=== PATIENT | male | born 1990 | race Caucasian/White ===

== ENCOUNTER 2018-04-26 21:20 | Outpatient (REF) | payer MEDICAID, SELFPAY ==
[2018-04-26 22:44] LABS: TSH (W/Ref FT4) 1.46 uIU/mL (0.358-3.74)
[2018-04-26 23:56] LABS: Anion Gap 10.2 mmol/L (3-11); BUN 11 mg/dL (7-18); CO2 25.8 mmol/L (21.0-32.0); Chloride 107 mmol/L (98-107); Glucose 68 mg/dL (70-100); Potassium 4.3 mmol/L (3.5-5.1); Sodium 143 mmol/L (136-145)
== END 2018-04-26 21:40 ==
LOC: NCHCN 21:20
PROVIDERS: PCP Specialist/Technologist Athletic Trainer; Visit Provider Specialist/Technologist Athletic Trainer
DX: F32.9 Major depressive disorder, single episode, unspecified (principal); Z00.00 Encounter for general adult medical examination without abnormal findings
CPT/HCPCS: 80048; 84443

== ENCOUNTER 2018-06-04 11:26 | Emergency (ER) | payer MEDICAID, SELFPAY ==
[2018-06-04 11:33] VITALS: BP 125/69; PULSE 55; RESP 18; TEMP 36.8; O2SAT 99
--- NOTE | 2018-06-04 11:45 | DI.CT_ITS ---
SYMPTOMS/DIAGNOSIS: LEFT LOWER QUADRANT ABDOMINAL PAIN, NAUSEA ABDOMINAL AND PELVIC CT: A CT examination of the abdomen and pelvis was performed following the intravenous infusion of Omnipaque 350. The liver and spleen are normal in size and shape with no evidence of any focal defects. There is no evidence of biliary dilatation. The gallbladder has a normal CT appearance. The pancreas appears intact and is not enlarged. There is no evidence of retroperitoneal lymphadenopathy. The bladder appears intact. The kidneys show bilateral function and there is no evidence of a renal mass. The vascular structures appear intact. There is no evidence of a mass in the pelvis. There is no evidence of a fluid collection or adenopathy. CONCLUSION: Normal abdominal and pelvic CT.
--- NOTE | 2018-06-04 11:46 | W.ED.GENAD ---
Discharge Plan Disposition Patient Disposition: HOME Condition: Improving Discharge Details Chief Complaint: Abd Prob Clinical Impression: Abdominal wall strain Primary Care Provider: Cedrick Barfield ED Provider: Justin Dias Home Meds and New Rx's Prescriptions: No Action No Known Home Meds RF: 0 Discharge Instructions Instructions: Muscle Strain (ED) Additional Instructions: Home to rest today. Small, frequent sips of fluids to maintain hydration. May use Tylenol and/or ibuprofen as needed for pain. Your CAT scan and blood work today was reassuring. Return if you develop a fever, worsening discomfort, or any other acute concerns. May return to activity gradually, as tolerated Discharge Data Discharge Date/Time-TO BE ENTERED AT DEPARTURE: 06/04/18 12:50 Medical Decision Making Healthy 27-year-old male presents with 3 days of aching left lower quadrant abdominal pain is worse with movement. He is afebrile and well-appearing he is tender in the lower abdomen. Differential diagnosis includes muscular strain, occult colitis or diverticulitis. Patient IV access established, screening labs obtained, referred for imaging studies. Diagnostics reveal normal CBC and chemistries, UA notable for SG 1.030 Imaging: No acute findings per Dr. Chavarria. Therefore, consistent with left lateral muscular abdominal wall strain. Discussed the patient's findings with him, as well as home management and return precautions to the emergency department. He is stable for discharge at this time. Lab Data Lab results reviewed: Yes I reviewed the patient's lab results. Laboratory Tests Range/Units 06/04/18 06/04/18 06/04/18 11:50 12:00 12:00 WBC (4.4-10.8) k/cumm 6.80 RBC (4.50-6.00) m/cumm 5.62 Hgb (13.5-17.5) g/dL 17.0 Hct (40.0-50.0) % 50.5 H MCV (80-95) fL 89.9 MCH (27.0-33.0) pg 30.2 MCHC (32.0-36.0) g/dL 33.7 RDW (11.8-14.1) % 12.7 Plt Count (130-400) x1000/uL 228 MPV (8.0-11.0) fL 11.0 Immature Gran % 0.3 Neutrophils % 62.0 Lymphocytes % 27.6 Monocytes % 7.9 Eosinophils % 1.8 Basophils % 0.4 Absolute Neutrophils (1.2-6.7) k/cumm 4.21 Absolute Lymphocytes (1.2-3.4) k/cumm 1.88 Absolute Monocytes (0.11-0.7) k/cumm 0.54 Absolute Eosinophils (0.0-0.7) k/cumm 0.12 Absolute Basophils (0.0-0.2) k/cumm 0.03 Sodium (136-145) mmol/L 141 Potassium (3.5-5.1) mmol/L 4.2 Chloride (98-107) mmol/L 103 Carbon Dioxide (21.0-32.0) mmol/L 31.7 Anion Gap (3-11) mmol/L 6.3 BUN (7-18) mg/dL 14 Creatinine (0.70-1.30) mg/dL 0.78 Estimated GFR/1.73 m2 (mL/min/1.73m2) >= 60.00 Glucose (70-100) mg/dL 88 Calcium (8.5-10.1) mg/dL 9.3 Urine Color (Yellow) Yellow Urine Clarity Clear Urine pH (5-8) 6.0 Ur Specific [place] (1.005-1.025) >= 1.030 H Urine Protein (Negative) mg/dL Negative Urine Ketones (Negative) mg/dL Negative Urine Blood (Negative) Negative Urine Nitrite (Negative) Negative Urine Bilirubin (Negative) Negative Urine Urobilinogen (Up TO 0.2) EU/dL 0.2 Ur Leukocyte Esterase (Negative) Negative Urine Glucose (Negative) mg/dL Negative HPI General Mode of arrival: ambulatory. Date/Time Provider Initiated Documentation: 06/04/18 11:28. Limitations to Documentation: no limitations. Information obtained by: patient. History of Present Illness 27 year old M presents to the emergency department with the chief complaint of Left lower quadrant abdomen pain, described as moderate, Quality is described as aching, and is localized to the abdomen and left. Patient abdomen. and it has been intermittent. No relieving factors improve symptom(s), No exacerbating factors reported . HPI Narrative: 27-year-old male states that 1 month ago he had 3 days of aching left lower quadrant abdominal pain. He has been well in the interim. He states that he is now recurrent lower quadrant achy, nonradiating abdominal pain that was worse with movement while skateboarding yesterday. He has had no fever. Both episodes of pain have been associated with tenesmus and question of stool changes. He has not had dark or bloody stools. He denies fever or vomiting. He will endorse nausea. Related Data Home Medications Medication Instructions Recorded Confirmed Unknown [No Known Home Meds] 06/04/18 06/04/18 Allergies Allergy/AdvReac Type Severity Reaction Status Date / Time No Known Allergies Allergy Unverified 06/04/18 11:37 General Stated Complaint: Abd Prob AMBROCIO: 3 Review of Systems Review of Systems 8 systems reviewed and otherwise negative PFSH Social History Smoking/Tobacco Use Status: Never Exam Narrative Exam Narrative: GEN: awake, alert, oriented 3. Pleasant, well groomed, interactive. HEAD: Normocephalic, atraumatic ENT: Mucous membranes moist, oropharynx unremarkable, External ear exam unremarkable EYES: PERRL, EOMI NECK: Full ROM, no OPAL, no menigismus CHEST/RESP: Nontender, clear to auscultation bilateral, no wheeze/rhonchi/rales CARDIOVASCULAR: RRR, no murmur, rub mak. 2+ Rad pulse bilateral ABDOMEN: Soft, tender in the left lower quadrant without really, no mass or hernia appreciated. +Bowel sounds EXT: Full ROM, no edema, no rash Neuro: Grossly normal neurologic exam, conversant, interactive. Psych: Speech fluent, thoughts congruent, affect normal Course Vital Signs Temperature 36.8 C 06/04/18 11:33 Pulse 55 L 06/04/18 11:33 Respiratory Rate 18 06/04/18 11:33 Blood Pressure 125/69 06/04/18 11:33 Pulse Oximetry 99 06/04/18 11:33 Temperature 36.8 C 06/04/18 11:33 Temperature Source Skin 06/04/18 11:33 Pulse 55 L 06/04/18 11:33 Respiratory Rate 18 06/04/18 11:33 Respiratory Effort 06/04/18 11:36 Blood Pressure 125/69 06/04/18 11:33 Blood Pressure Position Sitting 06/04/18 11:33 Pulse Oximetry 99 06/04/18 11:33 Oxygen Delivery Method Room Air 06/04/18 11:33 Oxygen Flow Rate 0 06/04/18 11:33 Pain Level 5 06/04/18 11:33
--- NOTE | 2018-06-04 11:49 | ED.GENADUL_ITS ---
Discharge Plan Disposition Patient Disposition: HOME Condition: Improving Discharge Details Chief Complaint: Abd Prob Clinical Impression: Abdominal wall strain Primary Care Provider: Cedrick Barfield ED Provider: Justin Dias Home Meds and New Rx's Prescriptions: No Action No Known Home Meds RF: 0 Discharge Instructions Instructions: Muscle Strain (ED) Additional Instructions: Home to rest today. Small, frequent sips of fluids to maintain hydration. May use Tylenol and/or ibuprofen as needed for pain. Your CAT scan and blood work today was reassuring. Return if you develop a fever, worsening discomfort, or any other acute concerns. May return to activity gradually, as tolerated Discharge Data Discharge Date/Time-TO BE ENTERED AT DEPARTURE: 06/04/18 12:50 Medical Decision Making Healthy 27-year-old male presents with 3 days of aching left lower quadrant abdominal pain is worse with movement. He is afebrile and well-appearing he is tender in the lower abdomen. Differential diagnosis includes muscular strain, occult colitis or diverticulitis. Patient IV access established, screening labs obtained, referred for imaging studies. Diagnostics reveal normal CBC and chemistries, UA notable for SG 1.030 Imaging: No acute findings per Dr. Chavarria. Therefore, consistent with left lateral muscular abdominal wall strain. Discussed the patient's findings with him, as well as home management and return precautions to the emergency department. He is stable for discharge at this time. Lab Data Lab results reviewed: Yes I reviewed the patient's lab results. Laboratory Tests Range/Units 06/04/18 06/04/18 06/04/18 11:50 12:00 12:00 WBC (4.4-10.8) k/cumm 6.80 RBC (4.50-6.00) m/cumm 5.62 Hgb (13.5-17.5) g/dL 17.0 Hct (40.0-50.0) % 50.5 H MCV (80-95) fL 89.9 MCH (27.0-33.0) pg 30.2 MCHC (32.0-36.0) g/dL 33.7 RDW (11.8-14.1) % 12.7 Plt Count (130-400) x1000/uL 228 MPV (8.0-11.0) fL 11.0 Immature Gran % 0.3 Neutrophils % 62.0 Lymphocytes % 27.6 Monocytes % 7.9 Eosinophils % 1.8 Basophils % 0.4 Absolute Neutrophils (1.2-6.7) k/cumm 4.21 Absolute Lymphocytes (1.2-3.4) k/cumm 1.88 Absolute Monocytes (0.11-0.7) k/cumm 0.54 Absolute Eosinophils (0.0-0.7) k/cumm 0.12 Absolute Basophils (0.0-0.2) k/cumm 0.03 Sodium (136-145) mmol/L 141 Potassium (3.5-5.1) mmol/L 4.2 Chloride (98-107) mmol/L 103 Carbon Dioxide (21.0-32.0) mmol/L 31.7 Anion Gap (3-11) mmol/L 6.3 BUN (7-18) mg/dL 14 Creatinine (0.70-1.30) mg/dL 0.78 Estimated GFR/1.73 m2 (mL/min/1.73m2) >= 60.00 Glucose (70-100) mg/dL 88 Calcium (8.5-10.1) mg/dL 9.3 Urine Color (Yellow) Yellow Urine Clarity Clear Urine pH (5-8) 6.0 Ur Specific [place] (1.005-1.025) >= 1.030 H Urine Protein (Negative) mg/dL Negative Urine Ketones (Negative) mg/dL Negative Urine Blood (Negative) Negative Urine Nitrite (Negative) Negative Urine Bilirubin (Negative) Negative Urine Urobilinogen (Up TO 0.2) EU/dL 0.2 Ur Leukocyte Esterase (Negative) Negative Urine Glucose (Negative) mg/dL Negative HPI General Mode of arrival: ambulatory . Date/Time Provider Initiated Documentation: 06/04/18 11:28 . Limitations to Documentation: no limitations . Information obtained by: patient . History of Present Illness 27 year old M presents to the emergency department with the chief complaint of Left lower quadrant abdomen pain, described as moderate, Quality is described as aching, and is localized to the abdomen and left. Patient abdomen. and it has been intermittent. No relieving factors improve symptom( s), No exacerbating factors reported . HPI Narrative: 27-year-old male states that 1 month ago he had 3 days of aching left lower quadrant abdominal pain. He has been well in the interim. He states that he is now recurrent lower quadrant achy, nonradiating abdominal pain that was worse with movement while skateboarding yesterday. He has had no fever. Both episodes of pain have been associated with tenesmus and question of stool changes. He has not had dark or bloody stools. He denies fever or vomiting. He will endorse nausea. Related Data Home Medications Medication Instructions Recorded Confirmed Unknown [No Known Home Meds] 06/04/18 06/04/18 Allergies Allergy/AdvReac Type Severity Reaction Status Date / Time No Known Allergies Allergy Unverified 06/04/18 11:37 General Stated Complaint: Abd Prob AMBROCIO: 3 Review of Systems Review of Systems 8 systems reviewed and otherwise negative PFSH Social History Smoking/Tobacco Use Status: Never Exam Narrative Exam Narrative: GEN: awake, alert, oriented 3. Pleasant, well groomed, interactive. HEAD: Normocephalic, atraumatic ENT: Mucous membranes moist, oropharynx unremarkable, External ear exam unremarkable EYES: PERRL, EOMI NECK: Full ROM, no OPAL, no menigismus CHEST/RESP: Nontender, clear to auscultation bilateral, no wheeze/rhonchi/rales CARDIOVASCULAR: RRR, no murmur, rub mak. 2+ Rad pulse bilateral ABDOMEN: Soft, tender in the left lower quadrant without really, no mass or hernia appreciated. +Bowel sounds EXT: Full ROM, no edema, no rash Neuro: Grossly normal neurologic exam, conversant, interactive. Psych: Speech fluent, thoughts congruent, affect normal Course Vital Signs Temperature 36.8 C 06/04/18 11:33 Pulse 55 L 06/04/18 11:33 Respiratory Rate 18 06/04/18 11:33 Blood Pressure 125/69 06/04/18 11:33 Pulse Oximetry 99 06/04/18 11:33 Temperature 36.8 C 06/04/18 11:33 Temperature Source Skin 06/04/18 11:33 Pulse 55 L 06/04/18 11:33 Respiratory Rate 18 06/04/18 11:33 Respiratory Effort 06/04/18 11:36 Blood Pressure 125/69 06/04/18 11:33 Blood Pressure Position Sitting 06/04/18 11:33 Pulse Oximetry 99 06/04/18 11:33 Oxygen Delivery Method Room Air 06/04/18 11:33 Oxygen Flow Rate 0 06/04/18 11:33 Pain Level 5 06/04/18 11:33
[2018-06-04] MEDS: Normal Saline 1,000 ML 125 ML IV (12:00)
[2018-06-04 12:07] LABS: Bilirubin Negative (Negative); Blood Negative (Negative); Clarity Clear; Glucose Negative (Negative); Ketones Negative (Negative); Leukocyte Esterase Negative (Negative); Nitrite Negative (Negative); Specific Gravity >= 1.030 (1.005-1.025); Urobilinogen 0.2 EU/dL (Up TO 0.2)
[2018-06-04 12:09] LABS: Abs Immature Grans 0.02 k/cumm (0.0-0.09); Absolute Basophil Count 0.03 k/cumm (0.0-0.2); Absolute Eosinophil Count 0.12 k/cumm (0.0-0.7); Absolute Lymphocyte Count 1.88 k/cumm (1.2-3.4); Absolute Monocyte Count 0.54 k/cumm (0.11-0.7); Absolute Neutrophil Count 4.21 k/cumm (1.2-6.7); Basophils % 0.4; Eosinophils % 1.8; HCT 50.5 % (40.0-50.0); Immature Grans % 0.3; Lymphocytes % 27.6; Mean Corp. HGB Concentration 33.7 g/dL (32.0-36.0); Mean Corpuscular Hemoglobin 30.2 pg (27.0-33.0); Mean Corpuscular Volume 89.9 fL (80-95); Monocytes % 7.9; Platelet Count 228 x1000/uL (130-400); RBC 5.62 m/cumm (4.50-6.00); RBC Distribution Width 12.7 % (11.8-14.1)
[2018-06-04 12:15] LABS: Anion Gap 6.3 mmol/L (3-11); BUN 14 mg/dL (7-18); CO2 31.7 mmol/L (21.0-32.0); CREATININE 0.78 mg/dL (0.70-1.30); Calcium 9.3 mg/dL (8.5-10.1); Chloride 103 mmol/L (98-107); Glucose 88 mg/dL (70-100); Potassium 4.2 mmol/L (3.5-5.1); Sodium 141 mmol/L (136-145)
[2018-06-04] MEDS: Omnipaque 350 MG/ML 100 ML BTL IV (12:27)
[2018-06-04 12:48] VITALS: BP 125/69; PULSE 62; RESP 18; TEMP 36.8; O2SAT 99
== END 2018-06-04 12:50 | disposition home or self-care (01) ==
PROVIDERS: Emergency Provider Emergency Medicine; PCP Specialist/Technologist Athletic Trainer
DX: S39.011A Strain of muscle, fascia and tendon of abdomen, initial encounter (principal); X58.XXXA Exposure to other specified factors, initial encounter
CPT/HCPCS: 36415; 80048; 96360; 99285; 74177; 81003; 85025; 99284; J3490

== ENCOUNTER 2020-11-07 14:17 | Emergency (ER) | payer MEDICAID, SELFPAY ==
--- NOTE | 2020-11-07 14:15 | DI.RAD_ITS ---
EXAM: XR HAND RT COMPLETE CLINICAL HISTORY: s/p reduction/dislocation 5th finger, r/o fx. TECHNIQUE: 2D digital imaging was performed. COMPARISON: No exams were available for comparison FINDINGS: There is no evidence of fracture nor dislocation of the 5th finger. However, on the oblique view the re is a small 1 millimeter calcific density just volar to the proximal interphalangeal joint of the 4 th-ring finger. This may just represent a sesamoid bone. Correlation with site of tenderness is rec ommended. Incidentally noted is a benign bone island in the proximal aspect of the proximal phalanx of the 4th- ring finger. There are no lytic osseous lesions. There are no erosions evident. IMPRESSION: DATA REPOSITORY: RADIATION DOSE DELIVERED:
--- NOTE | 2020-11-07 14:18 | ED.GENADUL_ITS ---
Discharge Plan Disposition Patient Disposition: HOME Condition: Stable Discharge Details Clinical Impression: Contusion of finger Primary Care Provider: None,None ED Provider: Aiyana Grubbs Home Meds and New Rx's Prescriptions: Continued oxcarbazepine 150 mg Tablet 300 mg PO BID RF: 0 Discharge Instructions Instructions: Contusion in Adults (ED), Finger Dislocation (ED) Additional Instructions: Rest, ice, and elevate the affected area as much as possible. Alternate tylenol and motrin as needed and directed for pain. Follow up with your primary care doctor in 1 week as needed. Return to the emergency department with any worsening or new concerning symptoms. Referrals: Vinod Medley MD [ [facility] STAFF PHYSICIAN] - Discharge Data Discharge Date/Time-TO BE ENTERED AT DEPARTURE: 11/07/20 15:57 Discharge Physician: Aiyana Grubbs Medical Decision Making 30-year-old male presents with right fourth and fifth finger injuries after jammed on a skateboard prior to arrival. States he dislocated his right fifth finger but was able to reduce it himself. Mild edema of the right fourth and moderate edema with ecchymosis to right fifth finger. No deformities noted. Neurovascular intact. Patient referred for x-rays which were negative for obvious fracture. There was a potential sesamoid bone at the PIP joint of the fourth finger but patient nontender here so do not suspect fracture. Advised to place splint to the reported dislocated fifth finger but patient declined splint for either finger. He was instructed on the importance of RICE, alternating Tylenol and Motrin. He was given orthopedic follow-up information if needed. Medical Records Medical records reviewed: Yes I reviewed the patient's medical records. Imaging Data Radiologic Study: Radiologist's impression: XR HAND RT COMPLETE CLINICAL HISTORY: s/p reduction/dislocation 5th finger, r/o fx. TECHNIQUE: 2D digital imaging was performed. COMPARISON: No exams were available for comparison FINDINGS: There is no evidence of fracture nor dislocation of the 5th finger. However, on the oblique view there is a small 1 millimeter calcific density just volar to the proximal interphalangeal joint of the 4th-ring finger. This may just represent a sesamoid bone. Correlation with site of tenderness is recommended. Incidentally noted is a benign bone island in the proximal aspect of the proximal phalanx of the 4th-ring finger. There are no lytic osseous lesions. There are no erosions evident. HPI General Mode of arrival: ambulatory . Date/Time Provider Initiated Documentation: 11/07/20 14:18 . Limitations to Documentation: no limitations . Information obtained by: patient . HPI Narrative: Patient is a 30-year-old male presents to the ED with complaint of right hand injury after caught on a skateboard while skateboarding prior to arrival. Patient states his right fourth and fifth fingers became ulnarly displaced when he fell and his right fifth finger was dislocated. Patient states he was able to reduce it back into place. Patient states he is here for an x-ray to rule out fracture. He took ibuprofen prior to arrival. Related Data Home Medications Medication Instructions Recorded Confirmed oxcarbazepine 300 mg PO BID 11/07/20 11/07/20 Allergies Allergy/AdvReac Type Severity Reaction Status Date / Time No Known Allergies Allergy Unverified 11/07/20 14:33 General AMBROCIO: 3 Review of Systems All systems reviewed & are unremarkable except as noted in HPI and below PFSH Medical History (Updated 11/07/20 @ 15:46 by Aiyana Grubbs DO) Anxiety Depression Surgical History (Updated 11/07/20 @ 14:25 by Aiyana Grubbs DO) History of ankle surgery Social History Smoking/Tobacco Use Status: Never Smoking risk assessment performed?: Yes Alcohol Intake: never Drug use: Daily Substance use type: marijuana Do you feel safe at home: Yes Do you feel safe in your relationship?: Yes Exam Const General: cooperative, healthy appearing and no acute distress HENSD Head: normal to inspection Mouth: oral mucosae normal Eyes General: appearance normal, both eyes and all related structures Neck Neck: normal visual inspection Resp Effort & Inspection: normal respiratory effort and able to speak in complete sentences Cardio Rate: regular rate Skin General skin exam: no rashes or lesions noted Neuro General: patient alert, patient awake and patient oriented x3 Motor: muscle tone normal throughout Extrem Hand/finger images: 1. Some tenderness to palpation to right fourth finger. Mild edema. 2. Tenderness to palpation and pain with range of motion right fifth finger. Th ere is ecchymosis noted to the volar aspect of PIP joint. No open wounds noted. No deformity. Other: Right radial and ulnar pulses intact. No tenderness to palpation to right wrist. No right snuffbox tenderness. Psych Appearance: grossly normal Affect: normal affect
[2020-11-07 14:30] VITALS: BP 140/99; PULSE 66; RESP 16; TEMP 36.5; O2SAT 100
== END 2020-11-07 15:57 | disposition home or self-care (01) ==
PROVIDERS: Emergency Provider Physician Assistant
DX: S60.041A Contusion of right ring finger without damage to nail, initial encounter (principal); S60.051A Contusion of right little finger without damage to nail, initial encounter; V00.131A Fall from skateboard, initial encounter
CPT/HCPCS: 99283; 73130

== ENCOUNTER 2021-01-30 11:16 | Emergency (ER) | payer MEDICAID, SELFPAY ==
[2021-01-30 11:22] VITALS: BP 137/74; PULSE 62; RESP 16; TEMP 36.6; O2SAT 99
--- NOTE | 2021-01-30 11:30 | DI.RAD_ITS ---
Exam(s) XR ANKLE LT COMPLETE EXAM: XR ANKLE LT COMPLETE CLINICAL HISTORY: Fall, R/O Fracture. TECHNIQUE: 2D digital imaging was performed. COMPARISON: No exams were available for comparison FINDINGS: There is a lateral fixation plate across healed fracture of the distal fibula. No evidence of hardwa re fracture or loosening. On the opposite-medial aspect of the ankle there is a calcific density sub jacent to the medial malleolus which measures 5 by 4 millimeters and either represents avulsion fragm ent off the tip of the medial malleolus (there is mild overlying soft tissue swelling) or possibly an accessory ossicle or related to prior remote injury. There is no avulsion off the tip of the latera l malleolus. No widening of the mortise. Talar dome appears intact. On the lateral image there is a 11 x 3 millimeter calcific density at the anterior aspect of the ankle joint, either intra-articula r body or capsular calcification. This does not have the appearance of an acute avulsion fracture fr agment. There are minimal degenerative changes in the ankle joint. Subtalar joint appears unremarka ble. There is no inferior calcaneal spur. IMPRESSION: DATA REPOSITORY: RADIATION DOSE DELIVERED:
--- NOTE | 2021-01-30 11:30 | DI.RAD_ITS ---
Exam(s) XR TIB/FIB LT EXAM: XR TIB/FIB LT CLINICAL HISTORY: Hx of hardware, Fall, R/O Fracture. TECHNIQUE: 2D digital imaging was performed. COMPARISON: No exams were available for comparison FINDINGS: Fixation plate distal fibula across healed fracture site. No evidence of tibial plateau fracture nor other fractures in proximal half of the tibia and fibula. However, there is a 5 x 4 millimeter calc ific density seen in the mid aspect of the knee joint is probably intra-articular loose body. Cannot tell if there is knee joint effusion on these images. IMPRESSION: There is a 5 x 4 millimeter loose intra-articular body in the central knee joint. Lateral fixation plate distal fibula. See separate ankle report. DATA REPOSITORY: RADIATION DOSE DELIVERED:
--- NOTE | 2021-01-30 11:36 | ED.GENADUL_ITS ---
Discharge Plan Disposition Patient Disposition: HOME Condition: Stable Discharge Details Clinical Impression: Ankle fracture, left Primary Care Provider: None,None ED Provider: Laila Parikh Home Meds and New Rx's Prescriptions: No Action oxcarbazepine 150 mg Tablet 300 mg PO BID RF: 0 Discharge Instructions Instructions: Ankle Fracture (ED), Ankle Stirrup Splint (ED) Additional Instructions: Rest, ice, compression, elevation. Follow up with primary care provider in 3-5 days. Return to ED sooner if any worsening or concerns. Increase oral fluids. Please take Tylenol or Ibuprofen with food every 4-6 hours as needed for pain and swelling. Follow-up with orthopedics in 1 to 2 weeks as needed. Stand Alone Forms: Work Release Referrals: Vinod Medley MD [ [facility] STAFF PHYSICIAN] - Discharge Data Discharge Date/Time-TO BE ENTERED AT DEPARTURE: 01/30/21 13:16 Medical Decision Making 30-year-old male presents to the ER chief complaint of left ankle left lower leg pain. He was skateboarding this morning and sustained an inversion type injury. He has a plate in that leg and is concerned for underlying injury and fracture of hardware. He denies any other associated symptoms, no headache no C-spine tenderness he is alert and oriented x4 upon arrival. Did not take any medications prior to arrival. EXAM: XR ANKLE LT COMPLETE CLINICAL HISTORY: Fall, R/O Fracture. TECHNIQUE: 2D digital imaging was performed. COMPARISON: No exams were available for comparison FINDINGS: There is a lateral fixation plate across healed fracture of the distal fibula. No evidence of hardware fracture or loosening. On the opposite-medial aspect of the ankle there is a calcific density subjacent to the medial malleolus which measures 5 by 4 millimeters and either represents avulsion fragment off the tip of the medial malleolus (there is mild overlying soft tissue swelling) or possibly an accessory ossicle or related to prior remote injury. There is no avulsion off the tip of the lateral malleolus. No widening of the mortise. Talar dome appears intact. On the lateral image there is a 11 x 3 millimeter calcific density at the anterior aspect of the ankle joint, either intra- articular body or capsular calcification. This does not have the appearance of an acute avulsion fracture fragment. There are minimal degenerative changes in the ankle joint. Subtalar joint appears unremarkable. There is no inferior calcaneal spur. X-ray shows medial malleolus fracture. Patient placed in crutches and ankle stirrup splint. Walking boot given to go. Instructed on home care follow-up with orthopedics. HPI General Date/Time Provider Initiated Documentation: 01/30/21 11:33 . Limitations to Documentation: no limitations . Information obtained by: patient, RN notes reviewed and old records reviewed . HPI Narrative: 30-year-old male presents to the ER chief complaint of left ankle left lower leg pain. He was skateboarding this morning and sustained an inversion type injury. He has a plate in that leg and is concerned for underlying injury and fracture of hardware. He denies any other associated symptoms, no headache no C-spine tenderness he is alert and oriented x4 upon arrival. Did not take any medications prior to arrival. Related Data Home Medications Medication Instructions Recorded Confirmed oxcarbazepine 300 mg PO BID 11/07/20 01/30/21 Allergies Allergy/AdvReac Type Severity Reaction Status Date / Time No Known Allergies Allergy Unverified 01/30/21 11:29 General Stated Complaint: Orthopedic AMBROCIO: 4 Review of Systems All systems reviewed & are unremarkable except as noted in HPI and below Musculoskeletal Musculoskeletal: Reports as per HPI, Denies deformity, Reports arthralgias (Left ankle), Reports joint swelling and Reports radiating pain into limb (Left lower leg) [facility] Medical History (Updated 01/30/21 @ 12:43 by Laila Parikh) Anxiety Depression Surgical History (Updated 11/07/20 @ 14:25 by Aiyana Grubbs DO) History of ankle surgery Social History Smoking/Tobacco Use Status: Never Smoking risk assessment performed?: Yes Alcohol Intake: never Drug use: Daily Substance use type: marijuana Do you feel safe at home: Yes Do you feel safe in your relationship?: Yes Exam Narrative Exam Narrative: Constitutional: Alert and oriented x3. Appears stated age. Normal body habitus. Head: Normocephalic, no trauma. Eyes: Pupils PERRLA, Red reflex noted, EOM's intact. Eyelids symmetrical without lesions, discharge, or swelling. Chest: RRR, Normal S1, S2, distal pulses intact. Resp: Lungs clear to auscultation bilaterally, no wheezes, rales, or rhonchi. Musculoskeletal: 5/5 strength to all four extremities. Left ankle tenderness, mild swelling no obvious deformity noted CMS intact. Complaining of lateral malleolus tenderness with palpation left lateral lower extremity mild tenderness palpation, no obvious signs of injury. Skin: No suspicious rashes or lesions. Capillary refill less than 2 sec. Neurologic: Cranial nerves II-XII intact. Alert and oriented x 3. DTR's intact. Hematologic/Lymphatic: No ecchymosis, no lymphadenopathy. Course Vital Signs Vital signs: Vital Signs Temperature 36.6 C 01/30/21 11:22 Pulse 62 01/30/21 11:22 Respiratory Rate 16 01/30/21 11:22 Blood Pressure 137/74 01/30/21 11:22 Pulse Oximetry 99 01/30/21 11:22 Temperature 36.6 C 01/30/21 11:22 Temperature Source Skin 01/30/21 11:22 Pulse 62 01/30/21 11:22 Respiratory Rate 16 01/30/21 11:22 Respiratory Effort 01/30/21 11:29 Blood Pressure 137/74 01/30/21 11:22 Blood Pressure Position Sitting 01/30/21 11:22 Pulse Oximetry 99 01/30/21 11:22 Oxygen Delivery Method Room Air 01/30/21 11:22 Oxygen Flow Rate 0 01/30/21 11:22 Pain Level 7 01/30/21 11:22 Comment 01/30/21 11:22
== END 2021-01-30 13:16 | disposition home or self-care (01) ==
PROVIDERS: Emergency Provider Registered Nurse Emergency
DX: S82.52XA Displaced fracture of medial malleolus of left tibia, initial encounter for closed fracture (principal); X50.9XXA Other and unspecified overexertion or strenuous movements or postures, initial encounter; Y93.51 Activity, roller skating (inline) and skateboarding
CPT/HCPCS: 27760; 73590; 73610

== ENCOUNTER 2021-03-07 13:33 | Outpatient (REF) | payer MEDICAID, SELFPAY ==
[2021-03-07 19:24] LABS: MCH 29.5 pg (27.0-33.0); MCHC 32.8 % (32.0-36.0); MPV 11.1 fL (8.0-11.0); Platelet Count 234 10^3/uL (130-400); RBC 5.69 10^6/uL (4.36-5.78); RDW 12.3 % (11.8-14.1); RDW-SD 40.1 fL; WBC 5.86 10^3/uL (4.4-10.8)
[2021-03-07 19:26] LABS: HCT 51.2 % (40.0-50.0); HGB 16.8 g/dL (13.5-17.5)
[2021-03-07 19:43] LABS: ALT 32 U/L (16-63); AST 15 U/L (15-37); Albumin 4.2 g/dL (3.4-5.0); Alkaline Phosphatase 105 U/L (46-116); Anion Gap 6.1 mmol/L (3-11); BUN 13 mg/dL (7-18); Bilirubin, Total 0.7 mg/dL (0.2-1.0); CO2 30.9 mmol/L (21.0-32.0); CREATININE 0.8 mg/dL (0.70-1.30); Calcium 9.4 mg/dL (8.5-10.1); Chloride 108 mmol/L (98-107); Glucose 89 mg/dL (74-106); Potassium 4.6 mmol/L (3.5-5.1); Sodium 145 mmol/L (136-145); Total Protein 7.6 g/dL (6.4-8.2)
[2021-03-11 10:15] LABS: Hepatitis B Surface Ag Negative (Negative)
[2021-03-11 10:49] LABS: Hepatitis C Ab w Rflx HCV PCR Negative (Negative)
[2021-03-11 11:51] LABS: Syphilis Serology (RPR) Negative (Negative)
== END 2021-03-07 13:34 | disposition home or self-care (01) ==
LOC: NCHCN 13:33
PROVIDERS: Visit Provider Nurse Practitioner Family
DX: Z13.228 Encounter for screening for other metabolic disorders (principal); Z13.0 Encounter for screening for diseases of the blood and blood-forming organs and certain disorders involving the immune mechanism; Z11.59 Encounter for screening for other viral diseases; Z00.00 Encounter for general adult medical examination without abnormal findings
CPT/HCPCS: 80053; 85027; 86803; 87340; 87491; 87591; 86592

== ENCOUNTER 2021-03-14 14:57 | Outpatient (REF) | payer MEDICAID, SELFPAY ==
[2021-03-18 15:25] LABS: Chlamydia Result Negative (Negative); GC Result Negative (Negative)
== END 2021-03-14 14:58 | disposition home or self-care (01) ==
LOC: NCHCN 14:57
PROVIDERS: Visit Provider Nurse Practitioner Family
DX: Z11.3 Encounter for screening for infections with a predominantly sexual mode of transmission (principal); Z00.00 Encounter for general adult medical examination without abnormal findings
CPT/HCPCS: 87491; 87591

== ENCOUNTER 2021-05-31 17:23 | Emergency (ER) | payer MEDICAID, SELFPAY ==
[2021-05-31 18:19] VITALS: BP 150/74; PULSE 76; RESP 16; TEMP 37.4; O2SAT 97
--- NOTE | 2021-05-31 18:27 | ED.GENADUL_ITS ---
Discharge Plan Disposition Patient Disposition: HOME Condition: Stable Discharge Details Clinical Impression: Pain, dental Primary Care Provider: Unknown,Unknown ED Provider: Jose Maria Jeff Home Meds and New Rx's Prescriptions: New amoxicillin 875 mg tablet 875 mg PO BID Qty: 20 RF: 0 Continued oxcarbazepine 150 mg Tablet 300 mg PO BID RF: 0 vitamin B complex Capsule 1 cap PO DAILY RF: 0 ergocalciferol (vitamin D2) [Vitamin D2] 1,250 mcg (50,000 unit) Capsule PO DAILY RF: 0 Discharge Instructions Instructions: Toothache (ED) Additional Instructions: Amoxicillin as directed. [id number]-[id number] medications such as Tylenol, Motrin, Orajel, etc. as directed for symptomatic control. Cool and/or warm compresses as tolerated. Salt water gargles as tolerated. Please watch for new or worsening symptoms and return to the ER for any concerns. Otherwise please reach out to local dentist using our dental list that was provided, contact them on Thursday for prompt outpatient reevaluation. Medical Decision Making 30-year-old with acute on chronic dental pain. No obvious abscess. Patient appears well, nontoxic, afebrile, no trismus, airway is patent, speaking in full sentences. Will initiate antibiotic therapy with amoxicillin, first dose given here, will also provide him with a local dental list. We discussed kyzh-xee-[id number] treatment such as Tylenol, Motrin, Orajel, etc. Standard discharge and return precautions provided. This documentation was generated using [employer] dictation system, please disregard any oddities of phrase or misspellings. Medical Records Medical records reviewed: Yes I reviewed the patient's medical records. HPI General Mode of arrival: ambulatory . Date/Time Provider Initiated Documentation: 05/31/21 18:27 . Limitations to Documentation: no limitations . Information obtained by: patient . HPI Narrative: This is a 30-year-old male, denies significant past medical history, he is a former smoker, presents reporting acute on chronic dental pain. Patient states that he has not seen a dentist in nearly 10 years, has multiple cavities over the past several days has had increased left upper dental pain without swelling or foul taste in his mouth. He has tried mbmj-eyf-[id number] ibuprofen with some relief. He denies any fever, difficulty swallowing, sore throat. Patient attempted to make a dentist appointment but was unsuccessful. Patient works the overnight shift today and would like to initiate antibiotic therapy, cannot fill his prescription in the morning as he will be working. Related Data Home Medications Medication Instructions Recorded Confirmed oxcarbazepine 300 mg PO BID 11/07/20 05/31/21 amoxicillin 875 mg PO BID #20 tab 05/31/21 ergocalciferol (vitamin D2) unit PO DAILY 05/31/21 [Vitamin D2] vitamin B complex 1 cap PO DAILY 05/31/21 05/31/21 Previous Rx's Medication Instructions Recorded amoxicillin 875 mg PO BID #20 tab 05/31/21 Allergies Allergy/AdvReac Type Severity Reaction Status Date / Time No Known Allergies Allergy Unverified 05/31/21 18:28 General AMBROCIO: 4 Review of Systems Constitutional Constitutional: Denies fever(s) and Denies headache(s) ENT Ears, Nose, Mouth, and Throat: Denies headache(s), Reports mouth pain and Denies sore throat Integumentary/Breasts Skin/Breast: Denies erythema and Denies rash Neurologic Neurologic: Denies headache(s) [facility] Medical History Anxiety Depression Surgical History History of ankle surgery LEFT Social History Smoking/Tobacco Use Status: Never Smoking risk assessment performed?: Yes Alcohol Intake: never Drug use: Daily Substance use type: marijuana Do you feel safe at home: Yes Do you feel safe in your relationship?: Yes Exam Const General: cooperative, healthy appearing, comfortable and no acute distress Orientation: alert, awake and oriented x3 HENMT Head: normal to inspection, normocephalic and atraumatic Face and sinus: normal facial exam Mouth: oral mucosae normal, lip normal, tongue normal and moist mucous membranes Teeth and gingiva: fair dentition (Few scattered caries, tooth 14 with point discomfort,no abscess or swelling) Throat: posterior oropharynx normal Eyes General: appearance normal, both eyes and all related structures Conjunctivae: conjunctivae normal Neck Neck: normal visual inspection, full ROM, no lymphadenopathy, no meningeal signs, trachea midline, supple and nontender Resp Effort & Inspection: normal respiratory effort and able to speak in complete sentences Skin General skin exam: no rashes or lesions noted Neuro General: patient alert, patient awake, moves all extremities and no focal motor deficits Sensory Exam: no sensory deficits noted Psych Appearance: grossly normal Mental Status: mental status grossly normal
[2021-05-31] MEDS: Amoxicillin 875 MG TAB PO ×2 (19:13)
== END 2021-05-31 19:53 | disposition home or self-care (01) ==
PROVIDERS: Emergency Provider Physician Assistant
DX: R68.84 Jaw pain (principal); K08.89 Other specified disorders of teeth and supporting structures
CPT/HCPCS: 99283

== ENCOUNTER 2022-01-16 16:26 | Outpatient (REF) | payer MEDICAID, SELFPAY ==
[2022-01-16 18:52] LABS: HGB 17.3 g/dL (13.5-17.5); MCH 29.9 pg (27.0-33.0); MCHC 33.9 % (32.0-36.0); MCV 88 fL (80-95); Platelet Count 256 10^3/uL (130-400); RBC 5.78 10^6/uL (4.36-5.78); WBC 8.76 10^3/uL (4.4-10.8)
[2022-01-20 12:42] LABS: IgA 413 mg/dL (85-499); Interpretation (See Note); Tissue Transglutaminase IgA <1.2 U/mL (<4.0)
== END 2022-01-16 16:27 | disposition home or self-care (01) ==
LOC: NCHCN 16:26
PROVIDERS: Visit Provider Nurse Practitioner Family
DX: R19.8 Other specified symptoms and signs involving the digestive system and abdomen (principal); R19.4 Change in bowel habit
CPT/HCPCS: 82784; 83516; 85027

== ENCOUNTER 2022-01-20 11:30 | Outpatient (REF) | payer MEDICAID, SELFPAY | END 2022-01-20 11:31 | disposition home or self-care (01) | LOC: NCHCN 11:30 | PROVIDERS: Visit Provider Nurse Practitioner Family | DX: R19.8 Other specified symptoms and signs involving the digestive system and abdomen (principal); R19.4 Change in bowel habit | CPT/HCPCS: 87329; 83630 ==

== ENCOUNTER 2022-04-10 16:51 | Outpatient (REF) | payer MEDICAID, SELFPAY ==
[2022-04-10 19:34] LABS: Abs Immature Grans 0.03 10^3/uL (0.0-0.06); Absolute Basophil Count 0.06 10^3/uL (0.0-0.2); Absolute Eosinophil Count 0.18 10^3/uL (0.0-0.7); Absolute Lymphocyte Count 2.44 10^3/uL (1.2-3.4); Absolute Monocyte Count 0.66 10^3/uL (0.1-0.8); Basophils % 0.8; Eosinophils % 2.3; HCT 49.8 % (40.0-50.0); HGB 16.5 g/dL (13.5-17.5); Immature Grans % 0.4; MCH 29.5 pg (27.0-33.0); MCHC 33.1 % (32.0-36.0); MCV 89 fL (80-95); MPV 11.4 fL (8.0-11.0); Monocytes % 8.4; Neutrophils % 57.1; Platelet Count 252 10^3/uL (130-400); RDW-SD 39.6 fL; WBC 7.87 10^3/uL (4.4-10.8)
[2022-04-10 19:53] LABS: ALT 53 U/L (16-63); AST 25 U/L (15-37); Albumin 3.8 g/dL (3.4-5.0); Alkaline Phosphatase 101 U/L (46-116); Anion Gap 5.2 mmol/L (3-11); BUN 14 mg/dL (7-18); Bilirubin, Direct 0.2 mg/dL (0.0-0.2); Bilirubin, Total 0.9 mg/dL (0.2-1.0); CO2 29.8 mmol/L (21.0-32.0); Chloride 104 mmol/L (98-107); Estimated GFR 103.19 (mL/min/1.73m2); Glucose 93 mg/dL (74-106); PHOSPHORUS 2.9 mg/dL (2.6-4.7); Potassium 4.4 mmol/L (3.5-5.1); Sodium 139 mmol/L (136-145); TSH (W/Ref FT4) 1.24 uIU/mL (0.36-3.74); Total Protein 7.9 g/dL (6.4-8.2)
[2022-04-10 20:10] LABS: TROPONIN-I < 0.5 ug/mL (4.0-12.0)
[2022-04-13 09:27] LABS: HIV-1/2 Ag & Ab Screen Negative (Negative)
== END 2022-04-10 16:52 | disposition home or self-care (01) ==
LOC: NCHCN 16:51
PROVIDERS: Nurse Practitioner Psychiatric/Mental Health; Visit Provider Nurse Practitioner Family
DX: F39 Unspecified mood [affective] disorder (principal); R12 Heartburn; G47.00 Insomnia, unspecified
CPT/HCPCS: 80069; 80076; 87389; 80156; 84443; 85025

== ENCOUNTER 2023-03-09 10:25 | Emergency (ER) | payer MEDICAID, SELFPAY ==
[2023-03-09 10:28] VITALS: BP 144/81; PULSE 77; RESP 16; TEMP 37.2; O2SAT 100
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
[2023-03-09] MEDS: Acetylcysteine 600 MG CAP 1200 MG PO ×2 (11:45→17:29)
[2023-03-09] MEDS: OXcarbazepine 150 MG TAB 300 MG PO ×2 (11:45→20:43)
[2023-03-09] MEDS: Spironolactone 50 MG TAB PO ×2 (11:46→12:45)
[2023-03-09] MEDS: Estradiol 1 MG TAB PO ×2 (11:47→20:43)
[2023-03-09] MEDS: Omeprazole 20 MG CAPCR PO (12:20)
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
[2023-03-09] MEDS: Spironolactone 50 MG TAB 100 MG PO (17:29)
[2023-03-09] MEDS: Citalopram 10 MG TAB PO (20:43)
[2023-03-09] MEDS: guanFACINE 1 MG TAB PO (20:43)
[2023-03-09] MEDS: diphenhydrAMINE 25 MG CAP 50 MG PO (22:58)
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
--- NOTE | 2023-03-10 09:23 | NUR.NOTE ---
Nursing Note: Spoke with Kusum at [facility] they would like to admit PT today just waiting for a discharge as soon as that takes place the provider will call for a doctor to doctor report.
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
--- NOTE | 2023-03-10 10:13 | CMSP_ITS ---
Date of service: 03/10/23 Time of Service: 10:13 Care Management Safety Plan Status Status: Voluntary Reason for Wait Reason for Wait: Inpatient Admission Safety Plan Safety Plan: VOLUNTARY FOR INPATIENT PSYCHIATRIC STABILIZATION.? Patient is appropriate in all interactions since arriving at [facility]; Pt has demonstrated appropriate coping and communication skills, has articulated his or her needs and concerns and is fully engaged during staff interactions. Safety plan has been established with patient and care team to adhere to patient goals, identify restrictions based on behavioral status, address nutrition, and determine allowed personal belongings, tools for hygiene and personal care, determine level of activitiy including ambulation, level of supervision, visitors, and determine privileges based on behaviors and level of engagement by patient. SAFETY PLAN: 1. Will remain on suicide precautions. In Paper Clothes 2. Will remain in room under direct supervision of one-on-one staff at all times provided by [employer], ENVIRONMENTAL ENGINEER, COLLISION REPAIR TECHNICIAN business transformation consultant. 3. May have paper cups, plates, finger foods as well as a cardboard spoon with which to eat meals. 4. Follow [facility] Management of the Admitted Behavioral Health Patient policy. 5. Comfort bath system only, shower permitted with escort at RN discretion. 6. No personal belongings. 7. Visitors-none at this time. 8. Activities: soft cart items approved per RN discretion. 9.? Bathroom privileges with escort in the ED, available in room without limitation on M/S. 10. Phone: contact limited to family at this time, via cordless phone at RN discretion. 11. Due to VOLUNTARY status, if patient wishes to leave [facility], staff will contact [facility] Crisis Screener ([phone]) and On-Call Day Haul Youth Supervisor ([phone]) as soon as possible. In the event of elopement, notify [facility] Police ([phone]). Patient is currently voluntarily at [facility] and seeking inpatient admission when a bed becomes available. [facility] [employer] Laborer will continue seeking placement. Please contact the Technical Developer Day Haul Youth Supervisor ([phone]) and [facility] Greens Laborer ([phone]) for any needed changes in the Safety Plan. Safety plan has been provided to interdepartmental care team.
[2023-03-10] MEDS: OXcarbazepine 150 MG TAB 300 MG PO (10:53)
[2023-03-10] MEDS: Estradiol 1 MG TAB PO (10:53)
[2023-03-10] MEDS: Spironolactone 50 MG TAB 100 MG PO (10:53)
[2023-03-10] MEDS: Omeprazole 20 MG CAPCR PO (10:53)
--- NOTE | 2023-03-10 11:08 | NUR.NOTE ---
Nursing Note: RN opened guanfacine but did not administer to the patient . Pt states they take at night.
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
--- NOTE | 2023-03-10 13:56 | CMPROGNOTE_ITS ---
Date of service: 03/10/23 Time of Service: 13:57 Care Management Progress Note Progress Note Text Progress Note Text: S/O: Kira is sitting up in bed when CM comes to meet with them. They are pleasant and easily engage in conversation. Kira reports being in a negative pressure room in the ED is worsening their mood as they are a private person who enjoys calm and quiet environments. CM advises Kira they have been [facility] by [facility] and are expected to be leaving for the [facility] around 3:00 pm. CM then spends time with Kira answering questions about the [facility] and setting expectations, as they have never been psychiatrically hospitalized and the idea of going to a [facility] hospital is creating some anxiety for them. They also talk about friends and family members who are unsupportive of their life choices and we spend some time processing thoughts and feelings associated with feeling rejected by loved ones. A: Kira is a 32 year old transgender female who presented to [facility] ED on 03/09/23 for suicidal ideation. P: Kira has been accepted by the [facility] for a voluntary placement. They will follow up with [facility], their counselor, Saldonnie Blevins, psychiatric medication provider, Bobbi Capellan, and plan of care as instructed upon discharge from the [facility]. The [facility] is providing transport to [place], as arranged by CM. MH Services (Omit if N/A) Current MH Services: Other (community therapist) Status Status: Voluntary Reason for Wait: Inpatient Admission ([facility])
[2023-03-10 14:39] LABS: Bilirubin Negative (Negative); Blood Negative (Negative); Clarity Clear (Clear); Glucose Negative (Negative); Ketones 40 mg/dL (Negative); Leukocyte Esterase Negative (Negative); Nitrite Negative (Negative); Specific Gravity >= 1.030 (1.005-1.025); Urobilinogen 0.2 mg/dL (Up to 0.2); pH 5.5 (5-8)
[2023-03-10 15:00] LABS: *AMPHETAMINES SCREEN URINE Negative (Negative); *BARBITURATES SCREEN URINE Negative (Negative); *BENZODIAZEPINES SCREEN URINE Negative (Negative); Cannabinoids THC Positive (Negative); Cocaine Screen,Urine Negative (Negative); METHADONE URINE SCREEN Negative (Negative); OPIATES URINE SCREEN Negative (Negative)
[2023-03-10 15:01] LABS: Tricyclic Antidepressants Negative (Negative)
== END 2023-03-10 15:23 ==
PROVIDERS: Emergency Provider Student in an Organized Health Care Education/Training Program
DX: T14.91XA Suicide attempt, initial encounter (principal); M54.2 Cervicalgia; Y93.89 Activity, other specified; Y92.488 Other paved roadways as the place of occurrence of the external cause; Y99.9 Unspecified external cause status
CPT/HCPCS: 80307; 99285; 81003; 99284

== ENCOUNTER 2023-04-16 16:58 | Outpatient (REF) | payer MEDICAID, SELFPAY ==
[2023-04-16 18:47] LABS: Abs Immature Grans 0.03 10^3/uL (0.0-0.06); Absolute Basophil Count 0.06 10^3/uL (0.0-0.2); Absolute Eosinophil Count 0.13 10^3/uL (0.0-0.7); Absolute Lymphocyte Count 2.56 10^3/uL (1.2-3.4); Absolute Monocyte Count 0.81 10^3/uL (0.1-0.8); Absolute Neutrophil Count 5.08 10^3/uL (1.2-6.7); Basophils % 0.7; Eosinophils % 1.5; HCT 45.4 % (40.0-50.0); Immature Grans % 0.3; Lymphocytes % 29.5; MCH 29.6 pg (27.0-33.0); MCV 90 fL (80-95); MPV 10.7 fL (8.0-11.0); Monocytes % 9.3; Neutrophils % 58.7; Platelet Count 310 10^3/uL (130-400); RBC 5.07 10^6/uL (4.36-5.78); RDW 12.2 % (11.8-14.1); WBC 8.67 10^3/uL (4.4-10.8)
[2023-04-16 19:22] LABS: ALT 47 U/L (16-63); AST 33 U/L (15-37); Albumin 3.8 g/dL (3.4-5.0); Alkaline Phosphatase 116 U/L (46-116); Anion Gap 8.3 mmol/L (3-11); BUN 18 mg/dL (7-18); Bilirubin, Total 0.9 mg/dL (0.2-1.0); CO2 26.7 mmol/L (21.0-32.0); CREATININE 0.8 mg/dL (0.70-1.30); Calcium 9.1 mg/dL (8.5-10.1); Calculated LDL 130 mg/dL (<100); Chloride 104 mmol/L (98-107); Cholesterol 198 mg/dL (<200); Estimated GFR 120.59 (mL/min/1.73m2); Glucose 83 mg/dL (74-106); HDL Cholesterol 48 mg/dL (40-60); Potassium 4.6 mmol/L (3.5-5.1); Sodium 139 mmol/L (136-145); Total Protein 7.9 g/dL (6.4-8.2); Triglyceride 104 mg/dL (<150)
[2023-04-16 19:40] LABS: Vitamin D 25 Total 11.5 ng/mL (30-100)
== END 2023-04-16 16:59 | disposition home or self-care (01) ==
LOC: NCHCN 16:58
PROVIDERS: Visit Provider Nurse Practitioner Family
DX: Z00.00 Encounter for general adult medical examination without abnormal findings (principal); F39 Unspecified mood [affective] disorder
CPT/HCPCS: 80053; 80061; 82306; 85025

== ENCOUNTER 2023-08-19 13:06 | Outpatient (REF) | payer MEDICAID, SELFPAY ==
[2023-08-19 16:24] LABS: Vitamin D 25 Total 11.2 ng/mL (30-100)
== END 2023-08-19 13:07 | disposition home or self-care (01) ==
LOC: NCHCN 13:06
PROVIDERS: PCP Nurse Practitioner Psychiatric/Mental Health; Visit Provider Nurse Practitioner Family
DX: E55.9 Vitamin D deficiency, unspecified (principal); Z00.00 Encounter for general adult medical examination without abnormal findings
CPT/HCPCS: 82306

== ENCOUNTER 2023-10-13 04:56 | Outpatient (CLI) | payer MEDICAID, SELFPAY ==
[2023-10-13] MEDS: Albuterol HFA 18 GM 200 PUFF INH IH (14:58)
[2023-10-13] MEDS: Methacholine 100 MG VIAL IH (14:58)
[2023-10-13] MEDS: Inhaler, Assist Device 1 EACH MC (14:59)
--- NOTE | 2023-10-16 12:17 | W.PFT ---
Date of service: 10/13/23 Time of Service: 12:56 Pulmonary Function Test Result Indications: Dyspnea Interpretation Spirometry: There is no airflow limitation. There was a 30% decrease with administration of 4mg/mL methacholine. Lung Volumes: Normal lung volumes Diffusion Capacity: Normal diffusion Airway Pressure: Normal airways resistance Impression Normal pulmonary function testing with a positive methacholine challenge. Clinical Correlation therefore is recommended.
== END 2023-10-13 04:57 | disposition home or self-care (01) ==
LOC: RT 04:57
PROVIDERS: PCP Nurse Practitioner Psychiatric/Mental Health; Visit Provider Nurse Practitioner Family
DX: R06.2 Wheezing (principal)
CPT/HCPCS: 94060; 94070; 94726; 94729; 94010; J7674

== ENCOUNTER 2024-01-06 13:53 | Outpatient (CLI) | payer MEDICAID, SELFPAY ==
[2024-01-06 11:48] LABS: Vitamin B12 369 pg/mL (193-986)
== END 2024-01-06 13:54 | disposition home or self-care (01) ==
LOC: LBO 13:54
PROVIDERS: PCP Nurse Practitioner Psychiatric/Mental Health; Visit Provider Psychiatry & Neurology Neurology
DX: G62.9 Polyneuropathy, unspecified (principal)
CPT/HCPCS: 36415; 82607

== ENCOUNTER 2024-01-21 01:15 | Outpatient (CLI) | payer MEDICAID, SELFPAY ==
--- NOTE | 2024-01-26 08:30 | TELEFU_ITS ---
Date of service: 01/21/24 Time of Service: 15:00 Nutrition Note NOTE: Tian arrives for referred nutrition appointment for help managing on-going digestive concerns. Anthropometrics on 12/31/23 were 70 and 113kg with a BMI of 35.8 Meds: NAC (heartburn), estradiol, omeprazole, buspirone, guanfacine, levomefeolate calcium, oxcarbazepine, and spironolactone, TUMS prn for heart burn. [place] states she currently does not take any nutrition supplements PMH includes obesity, vitamin d deficiency (04/2023), heartburn, insomnia, depression, gender transition Tian reports long history of digestive concerns and relates disordered eating in her history. Her main symptom is constipation and abdominal pain. She currently is vegetarian with eggs and fish and some poultry allowed. She reports lactose intolerance and drinks oat milk. Recently gave up all cheeses and reports a recent addiction to hard cheeses and was over-consuming. This overconsuming of singular items has occurred in other events relayed during the appointment, such as reporting digestive symptoms with apples but revealing that she ate not one but a whole bag of apples. We discussed physical activity, stress mgt, and sleep - Tian rates all three of these categories as poor. She relayed a quick diet history: has egg bites in the morning (egg dish in a muffin tin), turkey wrap with lettuce at lunch and stir denson and veggie burgers at dinner. She reports working with FODMAP historically and found some improvements but didn't tolerate the last two categories (?galactans and polyols?) but couldn't verify which these were -but identified beans as not tolerated. [place] states she is bad at drinking water. She currently practices intermittent fasting for weight management which is also a goal of hers - eating window goal is 11am-7pm. We discuss Estimated energy needs: 2709kcal (REEx1.3AF) - recommended 2,200kcals for weight mgt goal. 110-165g protein (20-30%of recommended kcals). 2709mL fluid (1mL per require kcal) Diagnosis: Inadequate fluid intake (NI-3.1) related to low intake of free water and water- containing beverages as evidenced by diet history related by pt. Inconsistent carbohydrate intake (NI-53.4) related to inconsistent fiber intake as evidenced by diet history related by patient - some days assesses as low fiber intake and others as very high (as in the case of eating a bag of apples) Inadequate vitamin D intake (NI-54.1) related to inadequate supplementation when levels are low, as evidenced by documented vitamin D deficiency sept 2022. Obesity (NC-3.3) related to excessive/inconsistent caloric intake and/or imbalance of macro/micronutrient intake as evidenced by pt's reported history of diet manipulation and binging/restriction. Intervention: Told [place] I-F is not a concern of mine but would like to see the eating window start earlier (to take advantage of circadian influences) in the day and account for 3 meals and 1-2 snacks that are spaced out enough - basically want to be able to eat every 3 hours and keep meals smaller and keep snacks from becoming one item that is eaten in large amounts- snacks should be paired food items from 2-3 different food groups and priority for snacks (and meals) should be getting protein, fiber and healthy carbs/fats from whole, minimally processed foods. We looked at avoiding products with long ingredient lists with things like carrageenan in it (common in plant milks and creamers and such as a thickening agent but is also a GI irritant for some people). Encouraged 3L fluid per day between water, tea, coffee and other non-sweetened beverages Encouraged mindful eating and general attention to stress mgt - slow down with eating and 30 chews per mouthful is a good mantra for digestive help. Recommend MVI supplement for micronutrient support and Vitamin D3 at 4,000IU year round or until checked again. We reviewed menu planning with food tolerated to form a baseline of items she can tolerate and expand from there - we worked on menu planning and I will remain available to help as needed with this. I suggested milk of magnesia to help with heartburn but also might help better than TUMS with constipation concerns. I would suggest a B12 lab due to longer term uses of omeprazole I also would consider broad spectrum digestive enzymes as a trial to see if this helps improve digestive symptoms if taken before meals. Monitoring: Will remain available for continuing help with her menu planning for improved digestive symptoms and weight mgt Time Spent in Nutritional Counseling and Treatment: 45 min
== END 2024-01-21 01:16 | disposition home or self-care (01) ==
LOC: DS 01:15
PROVIDERS: PCP Nurse Practitioner Psychiatric/Mental Health; Visit Provider Dietitian, Registered
DX: R19.8 Other specified symptoms and signs involving the digestive system and abdomen (principal)
CPT/HCPCS: 123; 97802

== ENCOUNTER 2024-04-21 15:38 | Outpatient (REF) | payer MEDICAID, SELFPAY ==
[2024-04-21 21:28] LABS: Anion Gap 6.4 mmol/L (3-11); BUN 10 mg/dL (7-18); CO2 27.6 mmol/L (21.0-32.0); CREATININE 0.9 mg/dL (0.55-1.02); Calcium 9.2 mg/dL (8.5-10.1); Chloride 105 mmol/L (98-107); Estimated GFR 86.57 (mL/min/1.73m2); Glucose 88 mg/dL (74-106); Potassium 4.4 mmol/L (3.5-5.1); Sodium 139 mmol/L (136-145); Vitamin D 25 Total 19.3 ng/mL (30-100)
== END 2024-04-21 15:39 | disposition home or self-care (01) ==
LOC: NCHCN 15:38
PROVIDERS: PCP Nurse Practitioner Family; Visit Provider Nurse Practitioner Family
DX: Z00.00 Encounter for general adult medical examination without abnormal findings (principal); E55.9 Vitamin D deficiency, unspecified
CPT/HCPCS: 80048; 82306

== ENCOUNTER 2024-11-18 20:47 | Emergency (ER) | payer MEDICAID, SELFPAY ==
[2024-11-18 21:03] VITALS: BP 130/72; PULSE 69; RESP 18; TEMP 36.6; O2SAT 98
[2024-11-18] MEDS: Acetaminophen 325 MG TAB 650 MG PO (21:43)
[2024-11-18 21:48] VITALS: BP 130/72; PULSE 69; RESP 18; TEMP 36.6; O2SAT 98
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
== END 2024-11-18 21:48 | disposition home or self-care (01) ==
PROVIDERS: Emergency Provider Physician Assistant; PCP Nurse Practitioner Family
DX: S69.82XA Other specified injuries of left wrist, hand and finger(s), initial encounter (principal); W18.39XA Other fall on same level, initial encounter; Y93.51 Activity, roller skating (inline) and skateboarding; Y92.89 Other specified places as the place of occurrence of the external cause; F17.210 Nicotine dependence, cigarettes, uncomplicated
CPT/HCPCS: 99283

== ENCOUNTER 2025-04-15 16:22 | Outpatient (REF) | payer MEDICAID, SELFPAY ==
[2025-04-19 11:24] LABS: HSV Type 2 Ab, IgG Positive (Negative)
== END 2025-04-15 16:23 | disposition home or self-care (01) ==
LOC: LBN 16:22
PROVIDERS: PCP Nurse Practitioner Family; Visit Provider Nurse Practitioner Family
DX: Z11.3 Encounter for screening for infections with a predominantly sexual mode of transmission (principal)
CPT/HCPCS: 86695; 86696